=== PATIENT | female | born 1940 | race Caucasian/White ===

== ENCOUNTER 2016-12-10 09:53 | Emergency (ER) | payer MEDICARE ==
[~2016-12-10] VITALS: Ht 162.6 cm; Wt 50.8 kg
[2016-12-10] MEDS ORDERED: ONDANSETRON PF 4 MG/2 ML VIAL. IV ONE (10:15)
[2016-12-10] MEDS ORDERED: ETOMIDATE 20 MG/10 ML VIAL. IV ONE (10:15)
[2016-12-10] MEDS ORDERED: IV NORMAL SALINE 1000ML BAG 1,000 ML IV ONE (10:15)
[2016-12-10] MEDS ORDERED: SUCCINYLCHOLINE 200 MG/10 ML VIAL. IV ONE (10:15)
--- NOTE | 2016-12-10 10:15 | PHYS DOC ---
Adult General Chief Complaint Chief Complaint: HEMATEMESIS/VOMITING BLOOD HPI HPI Patient is a 76 year old female who presents with hematemesis after receiving a Botox injection to her vocal cords by ENT at 9:30 this morning. Patient states after she left the office she thought she was swallowing medicine however started vomiting blood. Patient presented to the emergency room actively vomiting bright red blood in large amounts. Patient had no other complaints. Review of Systems Review of Systems GEN: Denies fevers, chills, sweats HEENT: Denies blurred vision, sore throat CV: Denies chest pain RESP: Cough and a blood GI: Nausea and vomiting NEURO: Denies confusion, dizziness MSK: Denies weakness, joint pain/swelling Current Medications Current Medications Current Medications Medications (Trade) Dose Ordered Sig/Rhonda Start Time Stop Time Status Last Admin Dose Admin Etomidate (Amidate) 20 mg 1X ONCE 12/10/16 10:15 12/10/16 10:18 DC 12/10/16 10:22 20 MG Fentanyl Citrate (Fentanyl 2ml Vial) 100 mcg 1X ONCE 12/10/16 10:45 12/10/16 10:46 DC 12/10/16 11:08 100 MCG Ondansetron HCl (Zofran) 4 mg 1X ONCE 12/10/16 10:15 12/10/16 10:16 DC 12/10/16 10:13 4 MG Propofol (Diprivan) 500 mg 1X ONCE 12/10/16 10:45 12/10/16 10:46 DC 12/10/16 10:39 500 MG Sodium Chloride 1,000 ml @ 1,000 mls/hr 1X ONCE 12/10/16 10:15 12/10/16 11:14 DC 12/10/16 10:12 1,000 MLS/HR Succinylcholine Chloride (Anectine) 200 mg 1X ONCE 12/10/16 10:15 12/10/16 10:17 DC 12/10/16 10:23 200 MG Allergies Allergies Allergies Coded Allergies Type Severity Reaction Last Updated Verified codeine Allergy Unknown 12/10/16 Yes wheat Allergy Unknown HISTORY OF CELIAC DISEASE 12/10/16 Yes Physical Exam Physical Exam GEN.: No apparent distress. Alert and oriented. HEENT: Head is normocephalic, atraumatic, actively coughing up bright red blood and blood to the posterior pharynx with a small bruise to the cricothyroid membrane from her recent vocal cord injection NECK: Supple. LUNGS: CTAB. HEART: RRR, S1, S2 present. Peripheral pulses intact ABDOMEN: Soft, nontender. Positive bowel sounds. EXTREMITIES: Without any cyanosis. NEUROLOGIC: Normal speech, normal tone PSYCHIATRIC: Normal affect, normal mood. SKIN: No ulcerations Current Patient Data Vital Signs Vital Signs Date Time Temp Pulse Resp B/P (MAP) Pulse Ox O2 Delivery O2 Flow Rate FiO2 12/10/16 11:29 68 17 150/69 (96) 100 Ventilator 12/10/16 09:57 98.0 98.0 Lab Values Laboratory Tests Test 12/10/16 10:03 White Blood Count 5.4 x10^3/uL (4.0-11.0) Red Blood Count 4.70 x10^6/uL (3.50-5.40) Hemoglobin 14.3 g/dL (12.0-15.5) Hematocrit 42.0 % (36.0-47.0) Mean Corpuscular Volume 89 fL (79-100) Mean Corpuscular Hemoglobin 30 pg (25-35) Mean Corpuscular Hemoglobin Concent 34 g/dL (31-37) Red Cell Distribution Width 14.9 % (11.5-14.5) H Platelet Count 254 x10^3/uL (140-400) Neutrophils (%) (Auto) 35 % (31-73) Lymphocytes (%) (Auto) 48 % (24-48) Monocytes (%) (Auto) 10 % (0-9) H Eosinophils (%) (Auto) 5 % (0-3) H Basophils (%) (Auto) 1 % (0-3) Neutrophils # (Auto) 1.9 x10^3uL (1.8-7.7) Lymphocytes # (Auto) 2.6 x10^3/uL (1.0-4.8) Monocytes # (Auto) 0.6 x10^3/uL (0.0-1.1) Eosinophils # (Auto) 0.3 x10^3/uL (0.0-0.7) Basophils # (Auto) 0.1 x10^3/uL (0.0-0.2) Sodium Level 139 mmol/L (136-145) Potassium Level 4.0 mmol/L (3.5-5.1) Chloride Level 101 mmol/L (98-107) Carbon Dioxide Level 28 mmol/L (21-32) Anion Gap 10 (6-14) Blood Urea Nitrogen 8 mg/dL (7-20) Creatinine 0.7 mg/dL (0.6-1.0) Estimated GFR (Cockcroft-Gault) 81.1 BUN/Creatinine Ratio 11 (6-20) Glucose Level 119 mg/dL (70-99) H Calcium Level 8.8 mg/dL (8.5-10.1) Total Bilirubin 0.4 mg/dL (0.2-1.0) Aspartate Amino Transferase (AST) 23 U/L (15-37) Alanine Aminotransferase (ALT) 21 U/L (14-59) Alkaline Phosphatase 64 U/L (46-116) Total Protein 7.5 g/dL (6.4-8.2) Albumin 4.0 g/dL (3.4-5.0) Albumin/Globulin Ratio 1.1 (1.0-1.7) Laboratory Tests 12/10/16 10:03 Laboratory Tests 12/10/16 10:03 EKG EKG [] Radiology/Procedures Radiology/Procedures Indication: Bleeding vocal cords Consent: Was given by the patient Medications Used: see nursing note Procedure: The patient was placed in the appropriate position. Intubation was performed using a glidescope, cords were visualized, a 8 endotracheal tube. [ ET SECURE]. Initial confirmation of placement included bilateral breath sounds , tube fogging, adequate chest rise, adequate pulse oximetry reading. A chest x -ray to verify correct placement of the tube showed appropriate tube position. The patient tolerated the procedure well. Complications: none.[] Post intubation x-ray shows the ET tube 2 cm above the maliha with NG tube in place Course & Med Decision Making Course & Med Decision Making Pertinent Labs and Imaging studies reviewed. (See chart for details) Was seen and examined upon arrival to emergency room, CBC, CMP, type and screen were ordered 1011: Discussed CC/HP/PMH with Dr. Roberts and recommends admit intubation to help control the bleeding for the vocal cords 1015: Patient was intubated with a size 80 ET tube using succinylcholine 100 mg and etomidate 20 mg and sedated with propofol and fentanyl 1030: Suction approximately 200 mL of bright red blood from the posterior pharynx 1046: Discussed CC/HP/PMH with Dr. Roberts and recommends moving the ET tube compress the vocal cords 1050: Bleeding has stopped and the posterior pharynx 1114: Bleeding has started in the posterior pharynx approximately 75 mL of blood was suctioned out. 1126: Left message on Dr. Roberts's phone to call back 1134: We'll transfer the patient to [facility] [] Dragon Disclaimer Dragon Disclaimer This electronic medical record was generated, in whole or in part, using a voice recognition dictation system. Departure Departure Impression: Primary Impression: Hemoptysis, unspecified Additional Impression: Cough with hemoptysis Disposition: 05 TRANSFER OTHER ([facility]) Condition: STABLE Problem Qualifiers LUCIEN TURNER DO Dec 10, 2016 10:14
[2016-12-10 10:25] LABS: CALCIUM 8.8 mg/dL (8.5-10.1); CREATININE 0.7 mg/dL (0.6-1.0); GFR 81.1
[2016-12-10 10:29] LABS: BASO # 0.1 x10^3/uL (0.0-0.2); BASO % 1 % (0-3); EOS % 5 % (0-3); HEMOGLOBIN 14.3 g/dL (12.0-15.5); LYMPH # 2.6 x10^3/uL (1.0-4.8); LYMPH % 48 % (24-48); MEAN CORPUSCULAR HEMOGLOBIN 30 pg (25-35); MEAN CORPUSCULAR HGB CONC 34 g/dL (31-37); MEAN CORPUSCULAR VOLUME 89 fL (79-100); MONO % 10 % (0-9); NEUT % 35 % (31-73); PLATELET COUNT 254 x10^3/uL (140-400); RED CELL DISTRIBUTION WIDTH 14.9 % (11.5-14.5); WHITE BLOOD COUNT 5.4 x10^3/uL (4.0-11.0)
[2016-12-10 10:31] LABS: ALBUMIN/GLOBULIN RATIO 1.1 (1.0-1.7); TOTAL BILIRUBIN 0.4 mg/dL (0.2-1.0); TOTAL PROTEIN 7.5 g/dL (6.4-8.2)
[2016-12-10] MEDS ORDERED: fentaNYL PF VIAL 100 MCG/2 ML VIAL IV ONE (10:45)
[2016-12-10] MEDS ORDERED: PROPOFOL 10 MG/ML (50ML) VIAL. IV ONE (10:45)
--- NOTE | 2016-12-10 11:29 | RAD ---
Portable chest, 12/10/2016: History: Post intubation Comparison is made to a study from 04/06/2005. An ET tube is now in place with its tip located 3 cm above the maliha. An NG tube extends into the stomach. The heart size is normal. There is a calcified granuloma in the left upper lobe. There is scarring over the pulmonary disease. No acute infiltrates are seen. There is no evidence of pleural fluid or pneumothorax. IMPRESSION: 1. The ET tube and NG tube are in satisfactory positions. 2. No acute cardiopulmonary abnormality is detected.
[2016-12-10 12:38] VITALS: BP 163/80
== END 2016-12-10 12:58 | disposition short-term general hospital (02) ==
LOC: ER 09:53
DX: R04.2 Hemoptysis (principal); Z88.5 Allergy status to narcotic agent; Z91.018 Allergy to other foods
CPT/HCPCS: 31500; 36415; 51702; 71010; 80053; 85027; 86850; 86900; 86901; 94002; 96361; 96374; 99285; J0330; J2405; J2704; J3010; J7030